=== PATIENT | male | born 1995 | race Hispanic/Latino ===

== ENCOUNTER 2017-08-02 12:42 | Emergency (ER) | payer SELFPAY ==
[2017-08-02] MEDS ORDERED: Dexamethasone 4 mg/ml Vial ONE (16:30)
[2017-08-02] MEDS ORDERED: Acetaminophen 500 MG TAB ONE (16:30)
[2017-08-02] MEDS ORDERED: Metoclopramide HCl 10 MG/2 ML VIAL ONE (16:30)
[2017-08-02 16:39] LABS: #Basophils 0.1 thou/uL (0.0-0.2); #Eosinphils 0.2 thou/uL (0.0-0.7); #Lymphocytes 2.4 thou/uL (1.20-3.40); #Monocytes 0.6 thou/uL (0.11-0.59); #Neutrophils 4.1 thou/uL (1.40-6.50); %Basophils 0.8 % (0.0-1.0); %Eosinophils 2.2 % (0.0-10.0); %Lymphocytes 32.5 % (21.0-51.0); %Monocytes 8.6 % (0.0-10.0); Hematocrit 43.3 % (42.0-52.0); Mean Platelet Volume 6.7 fL (7.4-10.4); Red Blood Cell (RBC) Count 4.76 mill/uL (4.70-6.10); White Blood Cell (WBC) Count 7.3 thou/uL (4.8-10.8)
[2017-08-02] MEDS ORDERED: ISOVUE-370 76%-LOCM 1 ML ONE (16:52)
[2017-08-02 17:00] LABS: ALT (SGPT) 92 U/L (8-55); AST (SGOT) 35 U/L (5-34); Alkaline Phosphatase 82 U/L (40-150); Anion Gap 14 mmol/L (10-20); BUN (Urea Nitrogen) 12 mg/dL (8.9-20.6); Bilirubin, Total 0.3 mg/dL (0.2-1.2); CK (CPK) 94 U/L (30-200); Calc. Creatinine Clearance 0 mL/min (70-130); Calcium 9.8 mg/dL (7.8-10.44); Carbon Dioxide 26 mmol/L (22-29); Chloride 104 mmol/L (98-107); Estimated GFR-MDRD Greater than 90; Protein, Total 7.6 g/dL (6.0-8.3)
--- NOTE | 2017-08-02 18:40 | CT ---
EXAM: NONCONTRAST HEAD CT 08/02/17 HISTORY: Trauma. Drill fell on the patient's head. Posttraumatic pain. COMPARISON: None. TECHNIQUE: Noncontrast head CT is performed from the skull base to skull vertex. FINDINGS: No parenchymal hemorrhage. No extra-axial hematoma. No midline shift. Basilar cisterns are patent. B rain volume, age appropriate. Cortical ruiz-white matter differentiation is preserved. Ventricles an d sulci are patent and symmetric. Adequate aeration of the sinuses and mastoid air cells. Calvarium is intact. IMPRESSION: No intracranial posttraumatic sequela. POS: [facility]
--- NOTE | 2017-08-02 19:24 | CT ---
EXAM: POSTCONTRAST SOFT TISSUE NECK CT LIMITED CT OF THE CERVICAL SPINE 08/02/17 HISTORY: Abnormal foreign body sensation in the esophagus. Sore throat. Cough and fever. Patient has a histor y of food being stuck after swallowing. Posttraumatic pain. Drill landing on patient's head. COMPARISON: None. TECHNIQUE: A postcontrast soft tissue neck CT is performed in the axial plane. Coronal reformatted images are s ubmitted for interpretation. Limited CT of cervical spine is performed with reformatted images. FINDINGS: The visualized brain parenchyma is unremarkable. No significant mucosal thickening at the level of t he nasopharynx. There is adequate aeration of bilateral mastoid air cells and visualized paranasal s inuses. Limited evaluation of the oral cavity due to dental artifact. Midline fatty raphae of the tongue is preserved. There are no masses within the oral cavity. Epiglottis has a normal caliber. Pre-epiglottic fat is preserved. There is nonspecific mild fullness of the palatine tonsils. The supraglottic, glottic and subglottic larynx are unremarkable. There is symmetric attenuation of the sternocleidomastoid muscles. Symmetric attenuation of the parotid and submandibular glands. There are enlarged bilateral level II lymph nodes, nonspecific. Left level II lymph node measures 1. 3 x 1.4 cm. Right level II lymph node measures 1.3 x 1.0 cm. Large right level III lymph node measur ing 1.2 x 1.0 cm is noted. Enlarged right level V lymph node measuring 1.4 x 0.9 cm. Grossly, the great vessels of the neck are patent. there is no evidence of a foreign body in the vis ualized aerodigestive tract. Upper mediastinum and lung apices are unremarkable. Cervical spine vertebral body heights are mainta ined. No evidence of fracture. No malalignment on the sagittal or coronal reformatted images. No high grade stenosis or high grade foraminal narrowing. IMPRESSION: 1. Mild fullness of the left and right palatine tonsils, nonspecific. Addition enlarged bilater al soft tissue neck lymph nodes are noted which are also nonspecific. Correlate for infectious, infl ammatory or neoplastic processes. 2. Preservation of cervical spine vertebral body heights. There is no fracture or malalignment. POS: [facility]
--- NOTE | 2017-08-09 12:16 | EKG ---
Test Reason : Blood Pressure : / mmHG Vent. Rate : 083 BPM Atrial Rate : 083 BPM P-R Int : 158 ms QRS Dur : 090 ms QT Int : 390 ms P-R-T Axes : 033 000 017 degrees QTc Int : 458 ms Normal sinus rhythm Minimal voltage criteria for LVH, may be normal variant Borderline ECG No specific ST-T segment abnormalities Confirmed by SANCHEZ DODSON ([id number]), content editor ERI HUSSEIN ([id number] on 08/09/2017 12:15:55 PM Referred By: Confirmed By:SANCHEZ DODSON
== END 2017-08-02 21:36 | disposition home or self-care (01) ==
LOC: ERS 12:42
DX: R51 Headache (principal); L40.9 Psoriasis, unspecified
CPT/HCPCS: 36415; 70450; 70491; 80053; 82550; 85025; 93005; 96361; 96374; 96375; J1100; J2765